=== PATIENT | male | born 1955 | race Caucasian/White ===

== ENCOUNTER 2021-09-04 02:44 | Inpatient (IN) ==
[2021-09-04] MEDS ORDERED: Naloxone 0.4 MG/ML INJ IVP PRN (06:25)
[2021-09-04] MEDS ORDERED: Melatonin 3 MG TABLET PO PRN (06:25)
[2021-09-04] MEDS ORDERED: DilTIAZem 50 MG/50 ML IV.SOLN IVC SCH (06:45)
[2021-09-04 07:19] LABS: Hematocrit 47.2 % (37.5-50.1); Immature Platelets 3.8 % (1.1-6.1); Mean Corpuscular HGB Conc 33.9 g/dL (31.6-35.5); Mean Corpuscular Hemoglobin 30.1 pg (28.0-33.3); Mean Corpuscular Volume 88.7 fL (83.0-100.0); Mean Platelet Volume 9.5 fL (9.4-12.4); Red Blood Count 5.32 M/mcL (4.19-5.50); Red Cell Distribution Width 12.5 % (11.5-14.5); White Blood Count 7.6 K/mcL (4.3-11.1)
[2021-09-04] MEDS ORDERED: Aspirin 325 MG TABLET PO ONE (07:22)
[2021-09-04] MEDS ORDERED: D5% in Water 1,000 ML IVC PRN (07:23)
[2021-09-04] MEDS ORDERED: Dextrose Gel 15 GM/37.5 ML TUBE PO PRN ×2 (07:23)
[2021-09-04] MEDS ORDERED: *HR* Dextrose 50 % in Water (Syg) 50 ML SYRINGE IVP PRN (07:23)
[2021-09-04] MEDS: Insulin LISPRO 300 UNITS/3 ML VIAL SUBQ SCH ×4 (07:54→19:47)
[2021-09-04 08:13] LABS: BUN/Creatinine Ratio 12 (6-26); Blood Urea Nitrogen 12 mg/dL (8-23); Calcium 7.9 mg/dL (8.6-10.3); Carbon Dioxide 22 mEq/L (23-29); Chloride 102 mEq/L (98-107); Glucose 116 mg/dL (70-105); Magnesium 1.8 mg/dL (1.6-2.6); Osmolality,Calculated 279 (280-300); Phosphorous 2.2 mg/dL (2.7-4.5); Potassium 3.5 mEq/L (3.5-5.1); Sodium 134 mEq/L (136-145); Troponin I 0.88 ng/mL (< 0.04); eGFR For African Americans > 60 (> 60); eGFR For Non-African Americans > 60 (> 60)
[2021-09-04] MEDS ORDERED: Perflutren Lipid Microsphere 1.3 ML in 0.9 % Sodium Chloride 8.7 ML IVP PRN ×2 (08:53→08:56)
[2021-09-04] MEDS ORDERED: Remdesivir 200 MG in 0.9 % Sodium Chloride 100 ML IVPB ONE (09:00)
[2021-09-04 09:22] LABS: INR 3.9; Prothrombin Time 42.9 Seconds (9.4-12.1)
[2021-09-04] MEDS ORDERED: DilTIAZem CD (24hr) 120 MG CAP.ER.24H PO SCH (12:15)
[2021-09-04] MEDS ORDERED: DilTIAZem CD (24hr) 120 MG CAP.ER.24H PO ONE (13:49)
[2021-09-04] MEDS: cefTRIAXone 1,000 MG in Water for inj. (sterile) 10 ML IVP SCH (14:56)
[2021-09-04] MEDS: Azithromycin 500 MG in 0.9 % Sodium Chloride 250 ML IVPB SCH (14:57)
[2021-09-04] MEDS ORDERED: Warfarin perPT PO PRN (18:00)
[2021-09-04] MEDS: CycloSPORINE, Mod (Neoral) 25 MG CAPSULE PO SCH (21:51)
[2021-09-05 07:34] LABS: INR 3.6; Prothrombin Time 39.7 Seconds (9.4-12.1)
[2021-09-05 08:14] LABS: Albumin 3.5 g/dL (3.5-5.7); Albumin/Globulin Ratio 1.4 (1.1-2.2); Bilirubin,Direct 0.3 mg/dL (0.0-0.2); Bilirubin,Indirect 0.4 mg/dL (0.0-1.0); Bilirubin,Total 0.7 mg/dL (0.3-1.0); Globulin 2.5 g/dL (2.4-3.5)
[2021-09-05] MEDS: Insulin LISPRO 300 UNITS/3 ML VIAL SUBQ SCH ×4 (09:04→20:31)
[2021-09-05] MEDS: Aspirin 81 MG TAB.CHEW PO SCH (09:06)
[2021-09-05] MEDS: CycloSPORINE, Mod (Neoral) 25 MG CAPSULE PO SCH ×2 (09:06→17:05)
[2021-09-05] MEDS: DilTIAZem CD (24hr) 240 MG CAP.ER.24H PO SCH (09:10)
[2021-09-05] MEDS: Remdesivir 100 MG in 0.9 % Sodium Chloride 100 ML IVPB SCH (09:10)
[2021-09-05] MEDS: cefTRIAXone 1,000 MG in Water for inj. (sterile) 10 ML IVP SCH (15:39)
[2021-09-05] MEDS: Azithromycin 500 MG in 0.9 % Sodium Chloride 250 ML IVPB SCH (15:40)
[2021-09-05 19:17] LABS: eGFR For African Americans > 60 (> 60); eGFR For Non-African Americans > 60 (> 60)
[2021-09-05] MEDS: Furosemide 20 MG/2 ML VIAL IVP SCH (20:35)
[2021-09-05] MEDS: Saline Nasal Spray 44 ML BOTTLE NS PRN (20:35)
[2021-09-06] MEDS: Saline Nasal Spray 44 ML BOTTLE NS PRN (03:22)
[2021-09-06 06:28] LABS: Fibrinogen 524 mg/dL (169-393)
[2021-09-06 06:29] LABS: INR 2.6; Prothrombin Time 28.4 Seconds (9.4-12.1)
[2021-09-06 06:34] LABS: Albumin 3.6 g/dL (3.5-5.7); Albumin/Globulin Ratio 1.3 (1.1-2.2); Bilirubin,Direct 0.3 mg/dL (0.0-0.2); Bilirubin,Indirect 0.6 mg/dL (0.0-1.0); Bilirubin,Total 0.9 mg/dL (0.3-1.0); Globulin 2.7 g/dL (2.4-3.5); Total Protein 6.3 g/dL (6.4-8.9)
[2021-09-06 06:38] LABS: D-Dimer 232 ng/mLFEU (0-500)
[2021-09-06 06:39] LABS: Alanine Aminotransferase 22 Units/L (7-52); Albumin 3.6 g/dL (3.5-5.7); Albumin/Globulin Ratio 1.4 (1.1-2.2); Alkaline Phosphatase 58 Units/L (34-104); Aspartate Amino Transferase 32 Units/L (13-39); BUN/Creatinine Ratio 29 (6-26); Bilirubin,Total 0.9 mg/dL (0.3-1.0); Blood Urea Nitrogen 28 mg/dL (8-23); Calcium 8.5 mg/dL (8.6-10.3); Carbon Dioxide 25 mEq/L (23-29); Chloride 105 mEq/L (98-107); Globulin 2.6 g/dL (2.4-3.5); Glucose 130 mg/dL (70-105); Lactate Dehydrogenase 369 Units/L (140-271); Magnesium 1.7 mg/dL (1.6-2.6); Osmolality,Calculated 297 (280-300); Potassium 3.9 mEq/L (3.5-5.1); Sodium 140 mEq/L (136-145); Total Protein 6.2 g/dL (6.4-8.9); eGFR For African Americans > 60 (> 60); eGFR For Non-African Americans > 60 (> 60)
[2021-09-06 06:53] LABS: Ferritin 807 ng/mL (20-250)
[2021-09-06] MEDS: Aspirin 81 MG TAB.CHEW PO SCH (08:00)
[2021-09-06] MEDS: DilTIAZem CD (24hr) 240 MG CAP.ER.24H PO SCH (08:00)
[2021-09-06] MEDS: CycloSPORINE, Mod (Neoral) 25 MG CAPSULE PO SCH ×2 (08:00→17:51)
[2021-09-06] MEDS: Remdesivir 100 MG in 0.9 % Sodium Chloride 100 ML IVPB SCH (08:00)
[2021-09-06] MEDS: Insulin LISPRO 300 UNITS/3 ML VIAL SUBQ SCH ×4 (08:01→21:29)
[2021-09-06] MEDS: Furosemide 20 MG/2 ML VIAL IVP SCH ×2 (08:01→21:37)
[2021-09-06] MEDS ORDERED: Azithromycin 250 MG TABLET PO SCH (15:00)
[2021-09-06] MEDS ORDERED: *HR* Warfarin 5 MG TABLET PO ONE (18:00)
[2021-09-07 06:34] LABS: Basophils % 0.4 %; Hematocrit 45.5 % (37.5-50.1); Hemoglobin 15.5 g/dL (12.9-16.9); Immature Granulocytes % 0.2 % (0-4); Lymphocytes # 0.9 K/mcL (0.6-4.6); Lymphocytes % 10.5 %; Mean Corpuscular HGB Conc 34.1 g/dL (31.6-35.5); Mean Corpuscular Hemoglobin 30.5 pg (28.0-33.3); Mean Corpuscular Volume 89.4 fL (83.0-100.0); Mean Platelet Volume 9.8 fL (9.4-12.4); Monocytes # 0.8 K/mcL (0.0-1.3); Monocytes % 9.5 %; Platelet Count 203 K/mcL (140-400); Red Blood Count 5.09 M/mcL (4.19-5.50); Red Cell Distribution Width 12.9 % (11.5-14.5); Segmented Neutrophils % 79.4 %; White Blood Count 8.5 K/mcL (4.3-11.1)
[2021-09-07 06:36] LABS: Neutrophils # 6.8 K/mcL (1.6-8.9)
[2021-09-07 06:40] LABS: Fibrinogen 401 mg/dL (169-393); INR 2.7; Prothrombin Time 29.7 Seconds (9.4-12.1)
[2021-09-07 06:47] LABS: D-Dimer < 215 ng/mLFEU (0-500)
[2021-09-07 06:50] LABS: Alanine Aminotransferase 26 Units/L (7-52); Albumin 3.4 g/dL (3.5-5.7); Albumin/Globulin Ratio 1.5 (1.1-2.2); Alkaline Phosphatase 53 Units/L (34-104); Aspartate Amino Transferase 30 Units/L (13-39); BUN/Creatinine Ratio 36 (6-26); Bilirubin,Direct 0.3 mg/dL (0.0-0.2); Bilirubin,Indirect 0.6 mg/dL (0.0-1.0); Bilirubin,Total 0.9 mg/dL (0.3-1.0); Blood Urea Nitrogen 36 mg/dL (8-23); Calcium 8.2 mg/dL (8.6-10.3); Carbon Dioxide 27 mEq/L (23-29); Chloride 102 mEq/L (98-107); Globulin 2.3 g/dL (2.4-3.5); Glucose 120 mg/dL (70-105); Lactate Dehydrogenase 321 Units/L (140-271); Magnesium 1.7 mg/dL (1.6-2.6); Osmolality,Calculated 292 (280-300); Phosphorous 3.4 mg/dL (2.7-4.5); Potassium 3.8 mEq/L (3.5-5.1); Sodium 136 mEq/L (136-145); Total Protein 5.7 g/dL (6.4-8.9); eGFR For African Americans > 60 (> 60); eGFR For Non-African Americans > 60 (> 60)
[2021-09-07 07:00] LABS: Platelet Estimate Normal (Normal)
[2021-09-07] MEDS: Insulin LISPRO 300 UNITS/3 ML VIAL SUBQ SCH ×4 (07:38→22:07)
[2021-09-07] MEDS: Aspirin 81 MG TAB.CHEW PO SCH (10:29)
[2021-09-07] MEDS: Furosemide 20 MG/2 ML VIAL IVP SCH ×2 (10:29→20:20)
[2021-09-07] MEDS: levoFLOXacin 750 MG TABLET PO SCH (10:29)
[2021-09-07] MEDS: CycloSPORINE, Mod (Neoral) 25 MG CAPSULE PO SCH ×2 (10:29→17:19)
[2021-09-07] MEDS: DilTIAZem CD (24hr) 240 MG CAP.ER.24H PO SCH (10:29)
[2021-09-07] MEDS: Remdesivir 100 MG in 0.9 % Sodium Chloride 100 ML IVPB SCH (10:30)
[2021-09-07] MEDS ORDERED: *HR* Warfarin 5 MG TABLET PO ONE (18:00)
[2021-09-08 02:41] LABS: INR 3.1; Prothrombin Time 34.7 Seconds (9.4-12.1)
[2021-09-08 02:49] LABS: Albumin 3.5 g/dL (3.5-5.7); Albumin/Globulin Ratio 1.3 (1.1-2.2); Bilirubin,Direct 0.5 mg/dL (0.0-0.2); Bilirubin,Indirect 0.8 mg/dL (0.0-1.0); Bilirubin,Total 1.3 mg/dL (0.3-1.0); Globulin 2.7 g/dL (2.4-3.5); Total Protein 6.2 g/dL (6.4-8.9)
[2021-09-08] MEDS: Insulin LISPRO 300 UNITS/3 ML VIAL SUBQ SCH ×2 (07:30→11:30)
[2021-09-08] MEDS: Furosemide 20 MG/2 ML VIAL IVP SCH (10:48)
[2021-09-08] MEDS: levoFLOXacin 750 MG TABLET PO SCH (10:48)
[2021-09-08] MEDS: Aspirin 81 MG TAB.CHEW PO SCH (10:48)
[2021-09-08] MEDS: DilTIAZem CD (24hr) 240 MG CAP.ER.24H PO SCH (10:48)
[2021-09-08] MEDS: CycloSPORINE, Mod (Neoral) 25 MG CAPSULE PO SCH (10:48)
[2021-09-08] MEDS: Remdesivir 100 MG in 0.9 % Sodium Chloride 100 ML IVPB SCH (10:49)
[2021-09-08 15:33] VITALS: BP 120/84; PULSE 90; TEMP 98.1; O2SAT 91
[2021-09-08] MEDS ORDERED: *HR* Warfarin 2 MG TABLET PO ONE (18:00)
== END 2021-09-08 16:00 | disposition home or self-care (01) | DRG 177 ==
LOC: 2NENU → SUATTDRO 06:09
PROVIDERS: ADMIT Internal Medicine; ATTEND Internal Medicine

== ENCOUNTER 2021-09-24 17:44 | Inpatient (IN) ==
[2021-09-24] MEDS ORDERED: 0.9 % Sodium Chloride 1,000 ML IVC ONE (17:52)
[2021-09-24] MEDS ORDERED: DilTIAZem 50 MG/50 ML IV.SOLN IVC SCH (18:00)
[2021-09-24 18:12] LABS: Basophils % 0.3 %; Eosinophils # 0.2 K/mcL (0.0-0.6); Eosinophils % 2.1 %; Hematocrit 48.4 % (37.5-50.1); Hemoglobin 16.2 g/dL (12.9-16.9); Immature Granulocytes % 0.5 % (0-4); Lymphocytes # 1.3 K/mcL (0.6-4.6); Lymphocytes % 14.7 %; Mean Corpuscular HGB Conc 33.5 g/dL (31.6-35.5); Mean Corpuscular Hemoglobin 30.3 pg (28.0-33.3); Mean Corpuscular Volume 90.6 fL (83.0-100.0); Mean Platelet Volume 9.1 fL (9.4-12.4); Monocytes # 0.9 K/mcL (0.0-1.3); Monocytes % 10.7 %; Neutrophils # 6.2 K/mcL (1.6-8.9); Platelet Count 213 K/mcL (140-400); Red Blood Count 5.34 M/mcL (4.19-5.50); Segmented Neutrophils % 71.7 %; White Blood Count 8.6 K/mcL (4.3-11.1)
[2021-09-24 18:22] LABS: INR 2.2
[2021-09-24 18:25] LABS: Activated Partial Thrombo Time 35.9 Seconds (26.0-36.0)
[2021-09-24] MEDS ORDERED: Isovue-370 500 ML BOTTLE IVP ONE (18:28)
[2021-09-24 18:45] LABS: BUN/Creatinine Ratio 21 (6-26); Blood Urea Nitrogen 21 mg/dL (8-23); Calcium 8.9 mg/dL (8.6-10.3); Carbon Dioxide 25 mEq/L (23-29); Chloride 100 mEq/L (98-107); Glucose 134 mg/dL (70-105); Magnesium 1.7 mg/dL (1.6-2.6); Osmolality,Calculated 287 (280-300); Potassium 3.6 mEq/L (3.5-5.1); Sodium 136 mEq/L (136-145); Troponin I 0.03 ng/mL (< 0.04); eGFR For African Americans > 60 (> 60); eGFR For Non-African Americans > 60 (> 60)
[2021-09-24 18:59] LABS: Thyroid Stimulating Hormone 2.967 mcIU/mL (0.340-5.600)
[2021-09-24] MEDS ORDERED: CycloSPORINE, Mod (Neoral) 25 MG CAPSULE PO ONE (21:15)
[2021-09-24 22:06] LABS: Bilirubin,Urine Negative (Negative); Blood,Urine Negative (Negative); Clarity,Urine Clear (Clear); Color,Urine Light-Yellow (Yellow); Glucose,Urine (UA) Normal (Normal); Ketones,Urine Negative (Negative); Leukocyte Esterase,Urine Negative (Negative); Nitrite,Urine Negative (Negative); PH,Urine 6.5 pH Units (5.0-8.0); Protein,Urine Trace mg/dL (Neg-Trace); Specific Gravity,Urine 1.019 (1.010-1.025)
[2021-09-24 22:16] LABS: Amphetamine Screen,Urine Negative ng/mL (Cutoff=1000); Barbiturate Screen,Urine Negative ng/mL (Cutoff=200); Benzodiazepines Screen,Urine Negative ng/mL (Cutoff=200); Cannabinoid Screen,Urine Negative ng/mL (Cutoff = 50); Cocaine Screen,Urine Negative ng/mL (Cutoff= 300); Opiate Screen,Urine Negative ng/mL (Cutoff=300); Phencyclidine Screen,Urine Negative ng/mL (Cutoff=25)
[2021-09-25] MEDS ORDERED: *HR* Warfarin 5 MG TABLET PO STA
[2021-09-25] MEDS ORDERED: Ondansetron 4 MG/2 ML VIAL IVP PRN (05:45)
[2021-09-25] MEDS ORDERED: Melatonin 3 MG TABLET PO PRN (05:45)
[2021-09-25] MEDS ORDERED: Naloxone 0.4 MG/ML INJ IVP PRN (05:45)
[2021-09-25] MEDS ORDERED: Acetaminophen 325 MG TABLET PO PRN (06:00)
[2021-09-25] MEDS ORDERED: *HR* OxyCODONE Immed Rel 5 MG TABLET PO PRN (06:00)
[2021-09-25] MEDS ORDERED: *HR* Promethazine 25 MG/ML VIAL IM PRN (06:00)
[2021-09-25] MEDS ORDERED: *HR* HYDROcodone/Acet 5/325 mg TABLET PO PRN (06:00)
[2021-09-25 08:07] LABS: Basophils % 0.2 %; Hematocrit 45.1 % (37.5-50.1); Hemoglobin 15.3 g/dL (12.9-16.9); Immature Granulocytes % 0.5 % (0-4); Lymphocytes # 0.6 K/mcL (0.6-4.6); Lymphocytes % 14.5 %; Mean Corpuscular HGB Conc 33.9 g/dL (31.6-35.5); Mean Corpuscular Hemoglobin 30.7 pg (28.0-33.3); Mean Corpuscular Volume 90.6 fL (83.0-100.0); Mean Platelet Volume 9.5 fL (9.4-12.4); Monocytes # 0.1 K/mcL (0.0-1.3); Monocytes % 2.5 %; Neutrophils # 3.6 K/mcL (1.6-8.9); Platelet Count 210 K/mcL (140-400); Red Blood Count 4.98 M/mcL (4.19-5.50); Red Cell Distribution Width 12.9 % (11.5-14.5); Segmented Neutrophils % 82.3 %; White Blood Count 4.4 K/mcL (4.3-11.1)
[2021-09-25 08:15] LABS: INR 2.1; Prothrombin Time 23.7 Seconds (9.4-12.1)
[2021-09-25 08:24] LABS: Alanine Aminotransferase 26 Units/L (7-52); Albumin 3.4 g/dL (3.5-5.7); Alkaline Phosphatase 80 Units/L (34-104); Aspartate Amino Transferase 18 Units/L (13-39); BUN/Creatinine Ratio 22 (6-26); Bilirubin,Total 0.8 mg/dL (0.3-1.0); Blood Urea Nitrogen 20 mg/dL (8-23); Calcium 8.7 mg/dL (8.6-10.3); Carbon Dioxide 22 mEq/L (23-29); Chloride 101 mEq/L (98-107); Globulin 3.3 g/dL (2.4-3.5); Glucose 170 mg/dL (70-105); Magnesium 1.7 mg/dL (1.6-2.6); Osmolality,Calculated 285 (280-300); Potassium 3.7 mEq/L (3.5-5.1); Sodium 134 mEq/L (136-145); Total Protein 6.7 g/dL (6.4-8.9); eGFR For African Americans > 60 (> 60); eGFR For Non-African Americans > 60 (> 60)
[2021-09-25 08:28] LABS: Platelet Estimate Normal (Normal); Reactive Lymphocytes Present (Not Present)
[2021-09-25] MEDS ORDERED: cefTRIAXone 1,000 MG in Water for inj. (sterile) 10 ML IVP SCH (09:00)
[2021-09-25] MEDS: DilTIAZem CD (24hr) 240 MG CAP.ER.24H PO SCH (09:24)
[2021-09-25] MEDS: Dexamethasone Sodium Phos/PF 10 MG/ML VIAL IVP SCH (09:25)
[2021-09-25] MEDS: Doxycycline 100 MG in 0.9 % Sodium Chloride Mini Bag 100 ML IVPB SCH ×2 (09:26→16:29)
[2021-09-25] MEDS ORDERED: *HR* Warfarin 5 MG TABLET PO SCH (15:15)
[2021-09-25] MEDS: Nystatin SUSP 5 ML UD.LIQ BC SCH ×3 (15:37→20:22)
[2021-09-25] MEDS: CycloSPORINE, Mod (Neoral) 25 MG CAPSULE PO SCH (16:37)
[2021-09-25] MEDS ORDERED: *HR* Warfarin 5 MG TABLET PO ONE (18:00)
[2021-09-26] MEDS: Doxycycline 100 MG in 0.9 % Sodium Chloride Mini Bag 100 ML IVPB SCH (05:49)
[2021-09-26 07:38] LABS: INR 2.8; Prothrombin Time 30.7 Seconds (9.4-12.1)
[2021-09-26] MEDS: Cholecalciferol (D-3) 1,000 UNIT (25MCG) TABLET PO SCH (09:05)
[2021-09-26] MEDS: DilTIAZem CD (24hr) 240 MG CAP.ER.24H PO SCH (09:06)
[2021-09-26] MEDS: Doxycycline 100 MG CAPSULE PO SCH ×2 (09:06→20:27)
[2021-09-26] MEDS: Nystatin SUSP 5 ML UD.LIQ BC SCH ×4 (09:06→20:27)
[2021-09-26] MEDS: Dexamethasone Sodium Phos/PF 10 MG/ML VIAL IVP SCH (09:06)
[2021-09-26] MEDS: CycloSPORINE, Mod (Neoral) 25 MG CAPSULE PO SCH ×2 (11:37→16:28)
[2021-09-26] MEDS ORDERED: Saline Nasal Spray 44 ML BOTTLE NS PRN (14:02)
[2021-09-26] MEDS ORDERED: *HR* Warfarin 5 MG TABLET PO SCH (15:12)
[2021-09-26] MEDS: Furosemide 20 MG/2 ML VIAL IVP SCH (16:34)
[2021-09-26] MEDS ORDERED: Warfarin perPT PO PRN (18:00)
[2021-09-26] MEDS ORDERED: *HR* Warfarin 2 MG TABLET PO ONE (18:00)
[2021-09-27 04:59] LABS: INR 3.2; Prothrombin Time 34.9 Seconds (9.4-12.1)
[2021-09-27] MEDS: Furosemide 20 MG/2 ML VIAL IVP SCH ×2 (05:39→17:42)
[2021-09-27] MEDS: Doxycycline 100 MG CAPSULE PO SCH ×2 (09:18→20:34)
[2021-09-27] MEDS: DilTIAZem CD (24hr) 240 MG CAP.ER.24H PO SCH (09:18)
[2021-09-27] MEDS: Nystatin SUSP 5 ML UD.LIQ BC SCH ×4 (09:19→20:34)
[2021-09-27] MEDS: CycloSPORINE, Mod (Neoral) 25 MG CAPSULE PO SCH ×2 (09:19→17:39)
[2021-09-27] MEDS: Cholecalciferol (D-3) 1,000 UNIT (25MCG) TABLET PO SCH (09:19)
[2021-09-27] MEDS: Dexamethasone Sodium Phos/PF 10 MG/ML VIAL IVP SCH (09:23)
[2021-09-28 01:51] LABS: INR 2.7; Prothrombin Time 30.3 Seconds (9.4-12.1)
[2021-09-28] MEDS: Furosemide 20 MG/2 ML VIAL IVP SCH ×2 (06:15→18:29)
[2021-09-28] MEDS: Nystatin SUSP 5 ML UD.LIQ BC SCH ×4 (09:00→20:01)
[2021-09-28] MEDS: Doxycycline 100 MG CAPSULE PO SCH ×2 (09:00→20:01)
[2021-09-28] MEDS: Cholecalciferol (D-3) 1,000 UNIT (25MCG) TABLET PO SCH (09:01)
[2021-09-28] MEDS: DilTIAZem CD (24hr) 240 MG CAP.ER.24H PO SCH (09:01)
[2021-09-28] MEDS: CycloSPORINE, Mod (Neoral) 25 MG CAPSULE PO SCH ×2 (09:01→16:41)
[2021-09-28] MEDS: dexAMETHasone 4 MG TABLET PO SCH (09:01)
[2021-09-28] MEDS ORDERED: *HR* Warfarin 2 MG TABLET PO ONE (18:00)
[2021-09-29] MEDS: Furosemide 20 MG/2 ML VIAL IVP SCH (05:07)
[2021-09-29 06:58] VITALS: BP 120/76; PULSE 81; TEMP 98.4; O2SAT 90
[2021-09-29 07:31] LABS: BUN/Creatinine Ratio 31 (6-26); Blood Urea Nitrogen 37 mg/dL (8-23); Calcium 9.3 mg/dL (8.6-10.3); Carbon Dioxide 31 mEq/L (23-29); Chloride 96 mEq/L (98-107); Glucose 107 mg/dL (70-105); Magnesium 1.9 mg/dL (1.6-2.6); Osmolality,Calculated 291 (280-300); Phosphorous 4.3 mg/dL (2.7-4.5); Potassium 4.4 mEq/L (3.5-5.1); Sodium 136 mEq/L (136-145); eGFR For African Americans > 60 (> 60); eGFR For Non-African Americans > 60 (> 60)
[2021-09-29 07:32] LABS: INR 1.9; Prothrombin Time 20.6 Seconds (9.4-12.1)
[2021-09-29] MEDS: dexAMETHasone 4 MG TABLET PO SCH (09:25)
[2021-09-29] MEDS: Nystatin SUSP 5 ML UD.LIQ BC SCH (09:25)
[2021-09-29] MEDS: CycloSPORINE, Mod (Neoral) 25 MG CAPSULE PO SCH (09:27)
[2021-09-29] MEDS: Cholecalciferol (D-3) 1,000 UNIT (25MCG) TABLET PO SCH (09:27)
[2021-09-29] MEDS: DilTIAZem CD (24hr) 240 MG CAP.ER.24H PO SCH (09:27)
[2021-09-29] MEDS: Doxycycline 100 MG CAPSULE PO SCH (09:28)
[2021-09-29] MEDS ORDERED: *HR* Warfarin 3 MG TABLET PO ONE (18:00)
== END 2021-09-29 15:08 | disposition home or self-care (01) | DRG 177 ==
LOC: EMEROOARM 17:44 → 2NENU 17:44 → SUATTDRO 09-25 05:36 → 2NENU 09-25 06:25
PROVIDERS: ADMIT Internal Medicine; ATTEND Internal Medicine